=== PATIENT | female | born 1950 | race Caucasian/White ===

== ENCOUNTER 2021-03-05 09:41 | Outpatient (CLI) | payer MEDICARE | END 2021-03-05 09:42 | disposition home or self-care (01) | LOC: CSHRAD 09:41 | PROVIDERS: ATTEND Nurse Practitioner Adult Health | DX: M25.562 Pain in left knee (principal) ==

== ENCOUNTER 2021-07-16 10:43 | Outpatient (CLI) | payer MEDICARE | END 2021-07-16 10:44 | disposition home or self-care (01) | LOC: CSHMAMMO 10:43 | PROVIDERS: ATTEND Internal Medicine | DX: Z12.31 Encounter for screening mammogram for malignant neoplasm of breast (principal); Z13.820 Encounter for screening for osteoporosis; Z78.0 Asymptomatic menopausal state; Z80.3 Family history of malignant neoplasm of breast | CPT/HCPCS: 77063; 77067; 77080 ==

== ENCOUNTER 2021-12-26 13:39 | Emergency (ER) | payer MEDICARE, OTHER ==
[2021-12-26] MEDS ORDERED: Acetaminophen 500 MG TAB ONE (15:26)
[2021-12-26 16:12] LABS: SARS-CoV-2 NAA Rapid Test DETECTED (NotDetected)
== END 2021-12-26 14:56 | disposition home or self-care (01) ==
LOC: CSHERS 13:39
DX: U07.1 COVID-19 (principal)
CPT/HCPCS: 0240U; 99284

== ENCOUNTER 2022-07-23 09:57 | Outpatient (CLI) | payer MEDICARE, OTHER | END 2022-07-23 09:58 | disposition home or self-care (01) | LOC: CSHMAMMO 09:57 | PROVIDERS: ATTEND Internal Medicine | DX: Z12.31 Encounter for screening mammogram for malignant neoplasm of breast (principal); Z80.3 Family history of malignant neoplasm of breast | CPT/HCPCS: 77063; 77067 ==

== ENCOUNTER 2023-06-25 12:28 | Outpatient (CLI) | payer MEDICARE | END 2023-06-25 12:29 | disposition home or self-care (01) | LOC: CSHRAD 12:28 | PROVIDERS: ATTEND Nurse Practitioner | DX: J20.9 Acute bronchitis, unspecified (principal) | CPT/HCPCS: 71046 ==